=== PATIENT | male | born 1955 | race Caucasian/White ===

== ENCOUNTER 2019-04-26 15:16 | Emergency (ER) | payer MEDICARE, BC ==
[~2019-04-26] VITALS: Ht 188 cm; Wt 108.9 kg
[~2019-04-26 15:16] MED LIST: AMLO2.5T PO; ASP81CT PO; DABI75CA3 PO; FENO145T2 PO; FENO45CA PO; METO50TA7 PO
--- NOTE | 2019-04-26 16:12 | ED EENT ---
History of Present Illness General Chief Complaint: Eye Problems Stated Complaint: VISION ISSUES/SUSPECTED PITUITARY TUMOR Nursing Triage Note: Pt reports being sent to ED from Dr. Peralta. Pt reports daily headaches since April 11. Pt also reports bilateral peripheral vision loss that changes daily. Pt. reports Dr. Peralta suspects a pituitary tumor and wants pt checked. Source: patient Exam Limitations: no limitations History of Present Illness Date Seen by Provider: Apr 26, 2019 Time Seen by Provider: 16:10 Initial Comments To ER per private vehicle from Dr. peralta (Optometry) office with concerns of a pituitary tumor. Beginning on April 11 the patient noticed some intermittent headaches at random times throughout the day and occasionally they would awaken him from sleep. No history of headaches. Headache or frontal. Also beginning around April 11 he noticed some vision changes. He states that when reading the words in books appeared blurry and his distance vision appeared blurrier than usual as well. Over the past 2-3 days he has lost peripheral vision bilaterally. He denies headache currently but does still have the bilateral peripheral vision loss. Timing/Duration: gradual Severity: moderate Location: eye (R), eye (L) Associated Symptoms: denies symptoms Allergies and Home Medications Allergies Coded Allergies: No Known Drug Allergies (Unverified , 12/27/10) Home Medications Amlodipine Besylate 2.5 Mg Tablet, 2 EACH PO DAILY, (Reported) Dabigatran Etexilate Mesylate 75 Mg Capsule, 75 MG PO BID, (Reported) Fenofibrate,Micronized 145 Mg Tablet, 145 MG PO DAILY, (Reported) Metoprolol Succinate 50 Mg Tab, 50 MG PO DAILY, (Reported) Patient Home Medication List Home Medication List Reviewed: Yes Review of Systems Review of Systems Constitutional: see HPI Eyes: See HPI, Vision Changes Ears: No Symptoms Reported Nose: no symptoms reported Mouth: no symptoms reported Throat: no symptoms reported Respiratory: no symptoms reported Cardiovascular: no symptoms reported Musculoskeletal: no symptoms reported Skin: no symptoms reported Neurological: No Symptoms Reported Hematologic/Lymphatic: No Symptoms Reported Immunological/Allergic: no symptoms reported Past Zwrijto-Qzlzts-Oyiejl Hx Patient Social History Alcohol Use: Rarely Uses Recreational Drug Use: No Smoking Status: Current Everyday Smoker Type Used: Cigarettes 2nd Hand Smoke Exposure: Yes Recent Foreign Travel: No Contact w/Someone Who Travel: No Recent Infectious Disease Expo: No Recent Hopitalizations: No (A-FIB IN DECEMBER 2010, MARCH, AND APRIL) Past Medical History Surgeries: Yes (T&A RT CARPEL TUNNEL, CYST LT HAND MIDDLE FINGER) Respiratory: No Cardiac: Yes Hypertension Neurological: No Reproductive Disorders: Yes (LOW TOTESTARONE LEVEL) Gastrointestinal: No Musculoskeletal: Yes (CARPEL TUNNEL SURGERY RT/ CYST REMOVED LT HAND MIDDLE FINGER) Endocrine: No Psychosocial: No Blood Disorders: No Physical Exam Vital Signs Vital Signs - First Documented 04/26/19 15:50 Temp 97.7 Pulse 68 Resp 12 B/P (MAP) 143/86 (105) Pulse Ox 97 O2 Delivery Room Air Height, Weight, BMI Height: 6'2.00" Weight: 240lbs. oz. 108.898781sz; BMI Method:Stated General Appearance: WD/WN, no apparent distress Eyes: bilateral eye PERRL, bilateral eye EOMI, bilateral eye other (currently pupils are about 7 mm bilaterally, he had his eyes dilated at the e commerce specialist's office) Ears: bilateral ear auricle normal, bilateral ear canal normal, bilateral ear TM normal Mouth/Throat: normal mouth inspection, pharynx normal Neck: non-tender, full range of motion Respiratory: normal breath sounds, no respiratory distress, no accessory muscle use Gastrointestinal: normal bowel sounds, soft Neurologic/Psychiatric: alert, normal mood/affect, oriented x 3 Skin: normal color, warm/dry Progress/Results/Core Measures Results/Orders Lab Results Laboratory Tests Test 04/26/19 16:15 Range/Units White Blood Count 5.6 4.3-11.0 10^3/uL Red Blood Count 4.68 4.35-5.85 10^6/uL Hemoglobin 14.7 13.3-17.7 G/DL Hematocrit 43 40-54 % Mean Corpuscular Volume 92 80-99 FL Mean Corpuscular Hemoglobin 31 25-34 PG Mean Corpuscular Hemoglobin Concent 34 32-36 G/DL Red Cell Distribution Width 13.1 10.0-14.5 % Platelet Count 163 130-400 10^3/uL Mean Platelet Volume 10.3 7.4-10.4 FL Neutrophils (%) (Auto) 61 42-75 % Lymphocytes (%) (Auto) 27 12-44 % Monocytes (%) (Auto) 9 0-12 % Eosinophils (%) (Auto) 3 0-10 % Basophils (%) (Auto) 1 0-10 % Neutrophils # (Auto) 3.4 1.8-7.8 X 10^3 Lymphocytes # (Auto) 1.5 1.0-4.0 X 10^3 Monocytes # (Auto) 0.5 0.0-1.0 X 10^3 Eosinophils # (Auto) 0.2 0.0-0.3 10^3/uL Basophils # (Auto) 0.0 0.0-0.1 10^3/uL Erythrocyte Sedimentation Rate 2 0-30 MM/HR Sodium Level 139 135-145 MMOL/L Potassium Level 4.0 3.6-5.0 MMOL/L Chloride Level 107 98-107 MMOL/L Carbon Dioxide Level 21 21-32 MMOL/L Anion Gap 11 5-14 MMOL/L Blood Urea Nitrogen 19 H 7-18 MG/DL Creatinine 1.75 H 0.60-1.30 MG/DL Estimat Glomerular Filtration Rate 39 BUN/Creatinine Ratio 11 Glucose Level 238 H 70-105 MG/DL Calcium Level 9.5 8.5-10.1 MG/DL My Orders Orders - LISA MEHTA APRN Cbc With Automated Diff (04/26/19 16:09) Basic Metabolic Panel (04/26/19 16:09) Ed Iv/Invasive Line Start (04/26/19 16:09) Erythrocyte Sedimentation Rate (04/26/19 16:20) Ct Head Wo (04/26/19 16:44) Vital Signs/I&O 04/26/19 15:50 Temp 97.7 Pulse 68 Resp 12 B/P (MAP) 143/86 (105) Pulse Ox 97 O2 Delivery Room Air Blood Pressure Mean: 105 Diagnostic Imaging Diagonstic Imaging: CT Comments NAME: SHERITA TORRES [facility] REC#: [id number] PT STATUS: REG ER : 1955 PHYSICIAN: LISA MEHTA APRN ADMIT DATE: 04/26/19/ER Draft Date of Exam:04/26/19 CT HEAD WO PROCEDURE: CT head without contrast. TECHNIQUE: Multiple contiguous axial images were obtained through the brain without the use of intravenous contrast. Auto Exposure Controls were utilized during the CT exam to meet ALARA standards for radiation dose reduction. INDICATION: Headaches and vision changes with peripheral vision loss. COMPARISON: None. FINDINGS: CT BRAIN: There is a heterogeneous predominantly hyperdense mass in the suprasellar region which measures approximately 2.7 x 2.8 cm. There is no significant surrounding mass effect. There is no midline shift or hydrocephalus. There is no parenchymal hemorrhage. Sebastian-white matter differentiation is intact. No acute infarct. No significant white matter changes. Mild prominence of the ventricles and Sulci consistent with cortical and cerebellar parenchymal volume loss. EXTRA-AXIAL SPACES: No subdural or epidural collections. ORBITS AND PARANASAL SINUSES: Visualized orbits and globes are intact. Visualized paranasal sinuses and mastoid air cells are clear. CALVARIUM AND SOFT TISSUES: The calvarium is intact. No fractures or suspicious bony lesions. The extracranial soft tissues are unremarkable. 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 There is no evidence of hemorrhage, significant mass effect/midline shift or hydrocephalus. Recommend further evaluation with MRI with/without contrast. Report was called to Lisa Mehta APRN in the [facility] ER at 5:12 p.m., by pablo. Dictated on workstation # [id number] Dict: 04/26/19 1703 Trans: 04/26/19 1714 PJManuel [id number] Interpreted by: JOSE M GERMAN DO Electronically signed by: Departure Communication (Admissions) 1720-I have clouded the images to the [facility], spoken with Carlyn, triage nurse who will relay the findings to neurosurgeon Dr. Arredondo and call back. 1757 [facility] has called back after speaking with Dr. Carlyn Arredondo. They will see the patient in the clinic on Monday04/30/19. This will be with Dr. Herrera, skull base surgeon. His nurse navigator will call the patient on Monday to give an exact time. Patient should return to the emergency room for any neurologic changes in the interim. Impression Primary Impression: Suprasellar mass Disposition: 01 HOME, SELF-CARE Condition: Stable Departure-Patient Inst. Decision time for Depature: 16:12 Referrals: NO,LOCAL PHYSICIAN (PCP/Family) Primary Care Physician Patient Instructions: Brain Tumor, Adult (DC) Add. Discharge Instructions: 1. I've spoken with the [facility] who has reviewed your CT. You will be seeing Dr. Herrera, skull base surgeon at the [facility] on Monday04/30/19. Dr. Herrera's nurse will call you on Monday to give you an exact time. They do recommend a 2 pack a bag in case they want to directly admit you at that point. In the meantime return to the emergency room for any significantly worsening symptoms, vomiting, weakness of one side or another or intolerable headache. The phone number to Dr. Herrera's clinic is [phone]. All discharge instructions reviewed with patient and/or family. Voiced understanding. Copy Copies To 1: OSCAR SANCHES OD; NINOSKA GU MD, PETER J APRN Apr 26, 2019 16:12
[2019-04-26 16:23] LABS: BASOPHILS % (AUTO) 1 % (0-10); EOSINOPHILS # (AUTO) 0.2 10^3/uL (0.0-0.3); EOSINOPHILS % (AUTO) 3 % (0-10); HEMATOCRIT 43 % (40-54); HEMOGLOBIN 14.7 G/DL (13.3-17.7); LYMPHOCYTES # (AUTO) 1.5 X 10^3 (1.0-4.0); LYMPHOCYTES % (AUTO) 27 % (12-44); MEAN CORPUSCULAR HEMOGLOBIN 31 PG (25-34); MEAN CORPUSCULAR HGB CONC 34 G/DL (32-36); MEAN CORPUSCULAR VOLUME 92 FL (80-99); MEAN PLATELET VOLUME 10.3 FL (7.4-10.4); MONOCYTES # (AUTO) 0.5 X 10^3 (0.0-1.0); MONOCYTES % (AUTO) 9 % (0-12); NEUTROPHILS # (AUTO) 3.4 X 10^3 (1.8-7.8); NEUTROPHILS % (AUTO) 61 % (42-75); PLATELET COUNT 163 10^3/uL (130-400); RED CELL DISTRIBUTION WIDTH 13.1 % (10.0-14.5); WHITE BLOOD COUNT 5.6 10^3/uL (4.3-11.0)
[2019-04-26 16:41] LABS: CALCIUM 9.5 MG/DL (8.5-10.1); CREATININE SERUM 1.75 MG/DL (0.60-1.30)
--- NOTE | 2019-04-26 17:14 | Diagnostic Imaging Report ---
PROCEDURE: CT head without contrast. TECHNIQUE: Multiple contiguous axial images were obtained through the brain without the use of intravenous contrast. Auto Exposure Controls were utilized during the CT exam to meet ALARA standards for radiation dose reduction. INDICATION: Headaches and vision changes with peripheral vision loss. COMPARISON: None. FINDINGS: CT BRAIN: There is a heterogeneous predominantly hyperdense mass in the suprasellar region which measures approximately 2.7 x 2.8 cm. There is no significant surrounding mass effect. There is no midline shift or hydrocephalus. There is no parenchymal hemorrhage. Sebastian-white matter differentiation is intact. No acute infarct. No significant white matter changes. Mild prominence of the ventricles and Sulci consistent with cortical and cerebellar parenchymal volume loss. EXTRA-AXIAL SPACES: No subdural or epidural collections. ORBITS AND PARANASAL SINUSES: Visualized orbits and globes are intact. Visualized paranasal sinuses and mastoid air cells are clear. CALVARIUM AND SOFT TISSUES: The calvarium is intact. No fractures or suspicious bony lesions. The extracranial soft tissues are unremarkable. 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 There is no evidence of hemorrhage, midline shift or hydrocephalus. Although there is no significant surrounding edema, this likely causes some degree of mass effect on the optic chiasm and may be responsible for the patient's visual symptoms. Recommend further evaluation with MRI with/without contrast. Report was called to Jesus Mehta APRN in the [facility] at 5:12 p.m., by pablo. Dictated by: Dictated on workstation # [id number]
[2019-04-26 18:13] VITALS: BP 140/86
--- OUTSIDE RECORDS SUMMARY | 2019-04-26 21:36 | XMS REPORT | Continuity of Care Document ---
Author Organization Unknown Address Unknown Allergies There is no data. Medications There is no data. Problems There is no data. Procedures There is no data. Results Test Result Range Drug Screen + ETOH - 01/11/19 10:41 Insurance Account Manager Analisa Root Donor ID By Photo ID Ethanol, Urine <10.00 mg/dL 20.00-80.00 Location [facility] Reason For Test Pre-Employment Temperature In Range YES Deg F 90.00-100.00 Urine Amphetamines NEGATIVE Urine Barbiturates NEGATIVE Urine Benzodiazepines NEGATIVE Urine Cocaine NEGATIVE Urine MDMA NEGATIVE Urine Methadone NEGATIVE Urine Methamphetamines NEGATIVE Urine Opiates NEGATIVE Urine Oxycodone NEGATIVE Urine PCP NEGATIVE Urine THC Metabolite NEGATIVE A1C - 03/25/19 11:09 HEMOGLOBIN A1c 6.4 % of total Hgb <5.7 Encounters ACCT No. Visit Date/Time Discharge Status Pt. Type Provider Facility Loc./Unit Complaint [id number] 03/27/2019 10:45:00 03/27/2019 23:59:59 CLS Outpatient BRITTANIE, NINOSKA WALDRON [facility] [id number] 03/25/2019 09:15:00 Document Registration [id number] 01/11/2019 10:32:00 01/11/2019 23:59:00 DIS Outpatient UNLISTED, UNLISTED
== END 2019-04-26 18:14 | disposition home or self-care (01) ==
LOC: EDUNIT# 15:16 → ER 15:17
DX: D35.2 Benign neoplasm of pituitary gland (principal); I10 Essential (primary) hypertension; F17.210 Nicotine dependence, cigarettes, uncomplicated; Z90.89 Acquired absence of other organs
CPT/HCPCS: 36415; 70450; 80048; 85025; 85652

== ENCOUNTER → 2021-07-05 | Outpatient (CLI) | payer MEDICARE, BC | LOC: LAB FS 08:06 | PROVIDERS: ATTEND Internal Medicine | DX: E27.49 Other adrenocortical insufficiency (principal) | CPT/HCPCS: 36415; 82024; 82533 ==